=== PATIENT | female | born 1945 | race Caucasian/White ===

== ENCOUNTER 2016-10-17 13:19 | Emergency (ER) | payer MEDICARE, BC ==
--- NOTE | ~2016-10-17 | CR63 ---
[facility] A Service of [facility] & [facility] RADIOLOGY TEXT RESULTS PATIENT: SEDA HOGAN LOCATION: [facility] : 43 UNIT #: [id number] AGE: [address]: Catalina Aiken MD SEX: F ORDER DR: [id number] [facility] [address] [place], [place] [address] [id number] E MR#: [id number] #: [id number] NAME: SEDA HOGAN : 1945 SEX: F STUDY DATE/TIME: 10/17/2016 13:37 UNIT: [facility] ROOM: STUDY DESCRIPTION: CR Chest 2 View Attending Physician: Catalina Aiken M.D. Ordering Physician: Catalina Aiken M.D. Primary Care Physician: Sami Madera M.D. MEDICAL IMAGING REPORT This report is preliminary unless electronic signature is present EXAM PA and lateral chest DATE 10/17/2016 at 13:37 HISTORY 70-year-old female shortness of breath and confusion today. Patient fell. COMPARISON None. FINDINGS Old healed left seventh rib fracture. No acute displaced left rib fractures identified. Clear lungs. No pleural effusion. No pneumothorax. Heart size within normal limits. IMPRESSION 1. No acute chest findings. Chronic-appearing left rib fracture. Dictated by... Bria Blunt M.D. THIS IS AN ELECTRONICALLY VERIFIED REPORT Bria Blunt M.D. at 10/18/2016 2:40 PM LLPurvi/noman TD: 10/17/2016 15:57 JOB #: [id number] MEDICAL IMAGING REPORT COPY
--- NOTE | ~2016-10-17 | EKG ---
PATIENT: SEDA HOGAN UNIT #: [id number] Ventricular Rate: 71 BPM Atrial Rate: 71 BPM P-R Interval: 150 ms QRS Duration: 74 ms Q-T Interval: 428 ms QTC Calculation(Bezet): 465 ms P [place]: 77 degrees Calculated R [place]: 67 degrees Calculated T [place]: 66 degrees Diagnosis Line: Normal sinus rhythm Diagnosis Line: Nonspecific ST abnormality Diagnosis Line: Otherwise normal ECG Diagnosis Line: No previous ECGs available Diagnosis Line: Confirmed by GIGI TATE MD ([id number]) on 10/18/2016 Diagnosis Line: 6:20:26 PM INTERPRETING MD: LEA WILSON
--- NOTE | ~2016-10-17 | CT71 ---
[facility] A Service [facility] RADIOLOGY TEXT RESULTS PATIENT: SEDA HOGAN LOCATION: [facility] : 43 UNIT #: [id number] AGE: [address]: Catalina Aiken MD SEX: F ORDER DR: [id number] [place] [id number] [facility]. [place], [place] [address] [id number] E MR#: [id number] Acc #: [id number] NAME: SEDA HOGAN : 1945 SEX: F STUDY DATE/TIME: 10/17/2016 15:48 UNIT: [facility] ROOM: STUDY DESCRIPTION: CT Head Wo Contrast Attending Physician: Catalina Aiken M.D. Ordering Physician: Catalina Aiken M.D. Primary Care Physician: Sami Madera M.D. MEDICAL IMAGING REPORT This report is preliminary unless electronic signature is present EXAM CT of the head without contrast performed on 10/17/2016 HISTORY 70-year-old female with fall and dizziness today. Patient has left eye pain and contusion above the left eye. TECHNIQUE This CT exam was performed with one or more of the following radiation dose reduction techniques: automatic exposure control, adjustment of mA and/or kV according to patient size, and iterative reconstruction. FINDINGS There is no shift of the midline structures, and the lungs are seen in the mass effect or acute hemorrhage present. No midline shift, mass effect or fluid in the skull fracture is seen. Paranasal sinuses and mastoid air cells are clear, except for some ethmoid sinus mucosal thickening. There is soft tissue swelling over the left orbit but no underlying skull fracture is seen. No radiopaque foreign body is identified in the soft tissues. The mastoid air cells and middle ear are clear bilaterally. IMPRESSION 1. Cerebral atrophy but no acute intracranial abnormality. 2. Soft tissue swelling over the left orbit but no underlying skull fracture. 3. No radiopaque foreign body in the area of the left orbital soft tissues. Dictated by... Lloyd Natarajan M.D. [facility] A Service of [facility] RADIOLOGY TEXT RESULTS PATIENT: SEDA HOGAN LOCATION: [facility] #: [id number] : 43 UNIT #: [id number] AGE: [address]: Catalina Aiken MD SEX: F ORDER DR: THIS IS AN ELECTRONICALLY VERIFIED REPORT Lloyd Natarajan M.D. at 10/17/2016 8:44 PM RP/pcl TD: 10/17/2016 19:35 JOB #: [id number] MEDICAL IMAGING REPORT COPY
[2016-10-17 13:46] LABS: BASOPHIL% 0.7 % (0-2.5); EOSINOPHIL% 0.1 % (0.0-7.0); HEMATOCRIT 40.6 % (35.0-45.0); HEMOGLOBIN 13.5 gm/dL (12.0-16.0); LYMPHOCYTE# 0.9 X10e3 (1.0-3.5); LYMPHOCYTE% 17.8 % (17.0-45.0); MEAN CORPUSCULAR HEMOGLOBIN 30.3 PG (28-34); MEAN CORPUSCULAR HGB CONC 33.3 g/dL (30-36); MEAN PLATELET VOLUME 8.8 FL (6.5-11.5); MONOCYTE# 0.9 X10e3 (0-1.0); MONOCYTE% 17.1 % (3.0-12.0); NEUTROPHIL# 3.2 X10e3 (1.5-7.1); NEUTROPHIL% 64.3 % (40-75); PLATELET COUNT 154 X10e3 (140-420); RED BLOOD COUNT 4.46 X10e (3.90-5.30)
[2016-10-17 13:48] LABS: DIFF IND NO
[2016-10-17 13:59] LABS: INR 1.1; PROTHROMBIN TIME (PATIENT) 11.7 SECONDS (9.6-11.5)
[2016-10-17 14:05] LABS: BLOOD UREA NITROGEN 17 mg/dL (9-23); BUN/CREATININE RATIO 15.45; CALCIUM SERUM 8.5 mg/dL (8.4-10.2); CARBON DIOXIDE 26 mmol/L (22-31); CHLORIDE 98 mmol/L (100-111); CREATININE SERUM 1.1 mg/dL (0.6-1.4); GLUCOSE FASTING 93 mg/dL (70-110); POTASSIUM 3.7 mmol/L (3.5-5.1); SODIUM 133 mmol/L (135-145)
[2016-10-17 14:12] LABS: ALCOHOL BLOOD <5 mg/dL (0)
[2016-10-17 14:28] LABS: URINE SOURCE CLEAN CATCH
[2016-10-17 14:30] LABS: INFLUENZA A POS (NEG); INFLUENZA B NEG (NEG)
[2016-10-17 14:33] LABS: URINE APPEARANCE CLEAR; URINE BILIRUBIN NEG (NEG); URINE BLOOD NEG (NEG); URINE COLOR YELLOW; URINE GLUCOSE NEG (NEG); URINE KETONE NEG (NEG); URINE LEUKOCYTE ESTERASE NEG (NEG); URINE NITRATE NEG (NEG); URINE PH 5.5 (5-8); URINE PROTEIN NEG (NEG); URINE UROBILINOGEN 0.2 MG/DL (NEG)
[2016-10-17 14:41] LABS: CULTURE INDICATED? NO
[2016-10-17 15:12] LABS: AMPHETAMINE NEG (NEG); BARBITURATES NEG (NEG); BENZODIAZEPINES NEG (NEG); COCAINE NEG (NEG); MARIJUANA NEG (NEG); OPIATES NEG (NEG); TRICYCLIC ANTIDEPRESSANTS NEG (NEG); U METHADONE NEG (NEG)
== END 2016-10-17 17:10 | disposition home or self-care (01) ==
LOC: CED 13:19
PROVIDERS: Emergency Medicine
DX: S00.93XA Contusion of unspecified part of head, initial encounter (principal); J45.909 Unspecified asthma, uncomplicated; Z90.710 Acquired absence of both cervix and uterus; Z90.49 Acquired absence of other specified parts of digestive tract; W19.XXXA Unspecified fall, initial encounter; Y92.009 Unspecified place in unspecified non-institutional (private) residence as the place of occurrence of the external cause
CPT/HCPCS: 36415; 70450; 71020; 80048; 80307; 81003; 85025; 85610; 87804; 93005; 96360; 99284; G0480